=== PATIENT | female | born 1965 | race Caucasian/White ===

== ENCOUNTER 2021-09-26 23:01 | Inpatient (IN) ==
[2021-09-26] MEDS ORDERED: STAT IV Infusion **Titration per Protocol STA (23:19)
[2021-09-26] MEDS ORDERED: dilTIAZem HCl 5 MG/ML 5 ML VIAL IV STA (23:19)
[2021-09-26] MEDS ORDERED: dilTIAZem HCL 125 MG in DEXTROSE 5% 100 ML IV SCH (23:30)
[2021-09-26] MEDS ORDERED: SODIUM CHLORIDE 0.9% 1000ML 1,000 ML IV SCH (23:30)
--- NOTE | 2021-09-26 23:50 | XRay Report ---
XR chest 1V portable CLINICAL HISTORY: palpitations. Covid positive. COMPARISON STUDY: No previous studies for comparison. TECHNIQUE: 1 view of the chest FINDINGS: Single frontal view of the chest demonstrates the cardiomediastinal silhouette to be within normal li mits. The lungs are clear of alveolar opacities. There is no evidence for pleural effusion. There is no evidence for vascular congestion. There is no acute osseous pathology. IMPRESSION: 1. No acute cardiopulmonary disease. ACT 112: Negative or not required by law. Electronically signed by: Jeremy Booker M.D. 09/26/2021 11:49 PM
[2021-09-26 23:52] LABS: D Dimer 290 ug/L FEU (0-500); Prothrombin Time 10.3 Seconds (9.0-12.0)
--- NOTE | 2021-09-27 00:05 | Emergency Department Note ---
History of Present Illness General Chief complaint: Tachycardia Stated complaint: TACHYCARDIA Time Seen by Provider: 09/26/21 23:08 Source: patient Mode of arrival: ambulatory Limitations: no limitations History of Present Illness Provider complaint: palpitations Onset (ago): hour(s) This is a 56-year-old female presents emergency department with concern for palpitations. Patient states this evening palpitations began approximately half an hour to 45 minutes ago and have been persistent ever since. She states she does have a history of frequent PVCs. She states several weeks ago her smart watch detected "A. fib". She has never previously been diagnosed with A. fib. She states she was having similar palpitations at that time. She states many years ago she had a stress test, no prior echo, and she does not follow with cardiology routinely. She states her PVCs were previously thought to be related to anxiety. She states she does take medication for high blood pressure and d oes take a low-dose aspirin daily. She and her recently traveled to [place]. She denies fevers or recent illness, no history of thyroid problems. Denies leg swelling or calf tenderness. She states she is taking her medications as previously prescribed and feels she is staying well-hydrated. Pt seen during a time of high acuity and national emergency pandemic while wearing PPE. Home Medications Medication Instructions Recorded Confirmed Type amlodipine 5 mg tablet 5 mg PO QPM 09/27/21 09/27/21 History aspirin 81 mg tablet,delayed 81 mg PO QAM 09/27/21 09/27/21 History release cyanocobalamin (vitamin B-12) 500 500 mcg PO QAM 09/27/21 09/27/21 History mcg tablet (Vitamin B-12) gemfibrozil 600 mg tablet 600 mg PO BID 09/27/21 09/27/21 History hydrochlorothiazide 25 mg tablet 25 mg PO QAM 09/27/21 09/27/21 History losartan 100 mg tablet 100 mg PO QAM 09/27/21 09/27/21 History metformin 500 mg tablet,extended 1,000 mg PO QAM 09/27/21 09/27/21 History release 24 hr Allergies Allergy/AdvReac Type Severity Reaction Status Date / Time cefdinir AdvReac Severe Diarrhea Verified 09/27/21 00:46 codeine AdvReac Intermediate Gastrointestinal Verified 09/27/21 00:46 Upset turmeric AdvReac Intermediate afib Verified 09/27/21 00:46 Past Med/Surg History Social History Smoking Status: Never smoker Hx Alcohol Use: Yes Alcohol type: wine Hx Substance Use: No Preferred Language: Lebanese Communication Ability: Effective Director Medical Science Required: No Beliefs That Will Affect Care: None Current Living Situation: Spouse and Family Other Information That Helps Us Care for You: No Feels Safe at Home: Yes Safety Concerns: Feels Safe At This Time Assistive Devices: Glasses Review of Systems A total of 10 systems reviewed and were otherwise negative All systems reviewed & are unremarkable except as noted in HPI & below Physical Exam Vital Signs Vital Signs - 24 hr 09/26/21 23:03 09/26/21 23:19 09/26/21 23:34 Temperature 36.4 C L Temperature Source Temporal Artery Scan Pulse Rate 135 H 135 H 132 H Pulse Rate from SpO2 Sensor 137 H Pulse Rhythm Regular Pulse Strength Normal Respiratory Rate 18 17 16 Respiratory Effort / Characteristics Non-Labored Spontaneous Respiratory Depth Normal Respiratory Pattern Regular Blood Pressure 192/98 H 183/124 H Blood Pressure Mean 129 143 Blood Pressure Position Sitting Pulse Oximetry 98 99 Oxygen Delivery Method Room Air Sepsis Recent Fever Within 48 Hours No Sepsis New/Unexplained Change in Mental Status N/A Sepsis Action Taken by Nursing No Action Required 09/26/21 23:45 09/27/21 00:00 09/27/21 00:04 Temperature Temperature Source Pulse Rate 126 H 120 H 123 H Pulse Rate from SpO2 Sensor 121 H Pulse Rhythm Pulse Strength Respiratory Rate 16 18 18 Respiratory Effort / Characteristics Respiratory Depth Respiratory Pattern Blood Pressure 118/93 Blood Pressure Mean 101 Blood Pressure Position Pulse Oximetry 94 98 Oxygen Delivery Method Sepsis Recent Fever Within 48 Hours Sepsis New/Unexplained Change in Mental Status Sepsis Action Taken by Nursing 09/27/21 00:15 09/27/21 00:16 09/27/21 00:16 Temperature Temperature Source Pulse Rate 101 H 87 Pulse Rate from SpO2 Sensor 98 H 81 Pulse Rhythm Pulse Strength Respiratory Rate 17 21 Respiratory Effort / Characteristics Respiratory Depth Respiratory Pattern Blood Pressure 120/48 L 120/48 L Blood Pressure Mean 72 72 Blood Pressure Position Pulse Oximetry 94 94 Oxygen Delivery Method Sepsis Recent Fever Within 48 Hours Sepsis New/Unexplained Change in Mental Status Sepsis Action Taken by Nursing 09/27/21 00:30 09/27/21 00:31 09/27/21 00:45 Temperature Temperature Source Pulse Rate 95 H 91 H 92 H Pulse Rate from SpO2 Sensor 95 H 87 90 Pulse Rhythm Pulse Strength Respiratory Rate 16 16 16 Respiratory Effort / Characteristics Respiratory Depth Respiratory Pattern Blood Pressure 93/68 L 125/88 Blood Pressure Mean 76 100 Blood Pressure Position Pulse Oximetry 96 93 91 Oxygen Delivery Method Sepsis Recent Fever Within 48 Hours Sepsis New/Unexplained Change in Mental Status Sepsis Action Taken by Nursing 09/27/21 01:00 09/27/21 01:00 09/27/21 01:15 Temperature Temperature Source Pulse Rate 100 H 115 H Pulse Rate from SpO2 Sensor 111 H 109 H Pulse Rhythm Pulse Strength Respiratory Rate 16 18 Respiratory Effort / Characteristics Respiratory Depth Respiratory Pattern Blood Pressure 148/106 H 122/76 Blood Pressure Mean 120 91 Blood Pressure Position Pulse Oximetry 95 94 Oxygen Delivery Method Sepsis Recent Fever Within 48 Hours Sepsis New/Unexplained Change in Mental Status Sepsis Action Taken by Nursing 09/27/21 01:30 09/27/21 01:46 Temperature Temperature Source Pulse Rate 108 H 117 H Pulse Rate from SpO2 Sensor 122 H 102 H Pulse Rhythm Pulse Strength Respiratory Rate 14 18 Respiratory Effort / Characteristics Respiratory Depth Respiratory Pattern Blood Pressure 147/87 H 132/105 H Blood Pressure Mean 107 114 Blood Pressure Position Pulse Oximetry 95 93 Oxygen Delivery Method Sepsis Recent Fever Within 48 Hours Sepsis New/Unexplained Change in Mental Status Sepsis Action Taken by Nursing GENERAL: alert, well appearing, well nourished, no distress, non-toxic EYE EXAM: normal conjunctiva, PERRL and EOM's grossly intact OROPHARYNX: no exudate, no erythema, lips, buccal mucosa, and tongue normal and mucous membranes are moist NECK: supple, no nuchal rigidity, no adenopathy, non-tender LUNGS: Clear to auscultation. Normal chest wall mechanics, no w/r/r HEART: no murmurs, S1 normal and S2 normal ABDOMEN: abdomen soft, non-tender, normo-active bowel sounds, no masses, no rebound or guarding. BACK: Back is symmetrical on inspection and there is no deformity, no midline tenderness, no CVA tenderness. SKIN: no rashes and no bruising UPPER EXTREMITIES: upper extremities are grossly normal. FROM, nml pulses b/l. LOWER EXTREMITIES: No pitting edema. FROM, nml pulses b/l. NEURO EXAM: Normal sensorium, cranial nerves II-XII grossly intact, normal speech, no gross weakness of arms, no gross weakness of legs. Gross sensation intact. Course Course 0015: HR improved with cardizem. Administered Medications Diltiazem HCl 125 mg/ Dextrose 125 mls @ 5 mls/hr IV .Q24H CHICA; Protocol Stop: 10/26/21 23:29 Last Titration: 09/27/21 04:15 Dose: 0 mg/hr, 0 mls/hr Documented By: JUAN JOSÉ Co-signed By: ELENI Admin: 09/27/21 00:09 Dose: 5 mg/hr, 5 mls/hr Documented By: MT Co-signed By: VANESA Heparin Sodium/Dextrose (Heparin Sodium/Dextrose) 25,000 units in 500 mls @ 18 mls/hr IV .Q24H CHICA; Protocol Stop: 10/27/21 00:29 Last Admin: 09/27/21 02:10 Dose: 900 units/hr, 18 mls/hr Documented By: MT Co-signed By: IRINEO Lactated Ringer's (Lr) 1,000 mls @ 80 mls/hr IV .[id number] ONE Stop: 09/27/21 14:21 Last Admin: 09/27/21 02:57 Dose: 80 mls/hr Documented By: JUAN JOSÉ Discontinued Medications Diltiazem HCl (Diltiazem Hcl 5 Mg/Ml 5 Ml Vial) 20 mg IV NOW STA Stop: 09/26/21 23:20 Last Admin: 09/26/21 23:55 Dose: 20 mg Documented By: MT Co-signed By: MOISES Heparin Sodium/Dextrose (Heparin Iv Adult Wt-Based Low-Dose *No* Bolus Protocol) 1 each IV ONE ONE; Protocol Stop: 09/27/21 00:24 Last Admin: 09/27/21 04:41 Dose: Not Given Documented By: JUAN JOSÉ Sodium Chloride (Nss 1000ml) 1,000 mls @ 125 mls/hr IV .Q8H CHICA Stop: 10/26/21 23:29 Last Infusion: 09/27/21 02:31 Dose: 0 mls/hr Documented By: Admin: 09/27/21 00:00 Dose: 125 mls/hr Documented By: TONI Metoprolol Tartrate (Metoprolol Tartrate 25 Mg Tab) 25 mg PO NOW STA Stop: 09/27/21 01:06 Last Admin: 09/27/21 02:14 Dose: 25 mg Documented By: TONI Miscellaneous (Stat Iv Infusion Titration Per Protocol) 1 each N/A NOW STA Stop: 09/26/21 23:20 Last Admin: 09/27/21 04:41 Dose: 1 each Documented By: JUAN JOSÉ Potassium Chloride (Potassium Chloride Crtab 20 Meq Tabcr) 40 meq PO NOW STA Stop: 09/27/21 01:03 Last Admin: 09/27/21 02:14 Dose: 40 meq Documented By: TONI Critical Care Time Critical Care Time: Yes Total Critical Care Time: 39 Critical care of 39 min performed to assess and manage high likelihood of life- threatening dysrhythmia, involving labs and imaging performed with assessment to evaluate dysrhythmia diagnosis with frequent reassessment. This time includes bedside time, treatment discussions with patient/family/consultants, documentation time and excludes procedure time. Medical Decision Making Differential Diagnosis Differential diagnosis includes etiologies such as premature contractions, electrolyte abnormality, cardiac dysrhythmia, thyroid dysfunction, pulmonary embolism, infection, gastrointestinal, as well as others were entertained. Medical Records Attestation: I reviewed the patient's medical records. Home Medications Current Medication List: was personally reviewed by me Laboratory Data Attestation: I reviewed the patient's lab results. Result diagrams: 09/26/21 23:35 09/26/21 23:35 Lab Results 09/26/21 09/26/21 09/26/21 Range/Units 23:20 23:20 23:20 WBC Cancelled RBC Cancelled Hgb Cancelled Hct Cancelled MCV Cancelled MCH Cancelled MCHC Cancelled RDW Std Deviation Cancelled RDW Coeff of Estefany Cancelled Plt Count Cancelled MPV Cancelled Immature Gran % (Auto) Cancelled Neut % (Auto) Cancelled Lymph % (Auto) Cancelled [place] % (Auto) Cancelled Eos % (Auto) Cancelled Baso % (Auto) Cancelled Neut # (Auto) Cancelled Lymph # (Auto) Cancelled [place] # (Auto) Cancelled Eos # (Auto) Cancelled Baso # (Auto) Cancelled Immature Gran # (Auto) Cancelled Absolute Nucleated RBC Cancelled Nucleated RBC % (auto) Cancelled Neutrophils % (Manual) Cancelled Band Neutrophils % Cancelled Lymphocytes % (Manual) Cancelled Prolymphocyte % Cancelled Reactive Lymphs % (Man) Cancelled Monocytes % (Manual) Cancelled Eosinophils % (Manual) Cancelled Basophils % (Manual) Cancelled Metamyelocytes % (Man) Cancelled Myelocytes % (Man) Cancelled Promyelocytes % (Man) Cancelled Blast Cells % (Manual) Cancelled Plasma Cell % (Manual) Cancelled Other Cells % Cancelled Nucleated RBC % Cancelled Neutrophils # (Manual) Cancelled Band Neutrophils # Cancelled Total Absolute Neuts Cancelled Lymphocytes # (Manual) Cancelled Prolymphocyte # Cancelled Reactive Lymphs # Cancelled Total Abs Lymphocytes Cancelled Monocytes # (Manual) Cancelled Eosinophils # (Manual) Cancelled Basophils # (Manual) Cancelled Metamyelocytes # (Man) Cancelled Myelocytes # (Manual) Cancelled Promyelocytes # (Man) Cancelled Blast Cells # (Man) Cancelled Plasma Cell # (Manual) Cancelled Other Cells # Cancelled Nucleated RBCs # (Man) Cancelled Hypersegmented Neuts Cancelled Hyposegmented Neuts Cancelled Hypogranular Neuts Cancelled Large Granular Lymphs Cancelled # Lrg Granular Lymphs Cancelled Hairy Cells Cancelled Smudge Cells Cancelled Toxic Granulation Cancelled Toxic Vacuolation Cancelled Dohle Bodies Cancelled Kalie Rods Cancelled Platelet Estimate Cancelled Hypogranular Platelets Cancelled Clumped Platelets Cancelled Giant Platelets Cancelled Platelet Satelliting Cancelled RBC Morphology Cancelled Polychromasia Cancelled Hypochromasia Cancelled Poikilocytosis Cancelled Basophilic Stippling Cancelled Anisocytosis Cancelled Microcytosis Cancelled Macrocytosis Cancelled Spherocytes Cancelled Pappenheimer Bodies Cancelled Sickle Cells Cancelled Target Cells Cancelled Tear Drop Cells Cancelled Ovalocytes Cancelled Stomatocytes Cancelled [place] Bodies Cancelled Echinocytes Cancelled Acanthocytes (Spur) Cancelled Rouleaux Cancelled RBC Agglutinates Cancelled Schistocytes Cancelled Sezary Cell Cancelled PT 10.3 (9.0-12.0) Seconds INR 1.0 (0.9-1.1) APTT (21.0-31.0) Seconds PTT Ratio D-Dimer 290 (0-500) ug/L FEU Sodium (136-145) mmol/L Potassium (3.5-5.1) mmol/L Chloride (98-107) mmol/L Carbon Dioxide (21-32) mmol/L Anion Gap (3-11) BUN (6-23) mg/dl Creatinine (0.6-1.2) mg/dl Est Cr Clr Drug Dosing ml/min Est GFR ( Amer) ml/min Est GFR (Non-Af Amer) ml/min BUN/Creatinine Ratio (10-20) Glucose (70-99(Fasting)) mg/dl Calcium (8.5-10.1) mg/dl Magnesium (1.7-2.4) mg/dl Total Bilirubin (0.2-1.0) mg/dl AST (13-39) U/L ALT (7-52) U/L Alkaline Phosphatase (34-104) U/L Troponin I High Sens (0-14) pg/ml Total Protein (6.0-8.3) gm/dl Albumin (3.4-5.0) gm/dl Globulin (2.5-4.0) gm/dl Albumin/Globulin Ratio (0.9-2) Lipase (11-82) U/L TSH 1.541 (0.300-4.500) uIu/ml Lyme Disease IgG Ab (Negative) Lyme Disease IgM Ab (Negative) SARS-CoV-2, RNA, NAAT (NEGATIVE) Blood Parasites ID Cancelled 09/26/21 09/26/21 09/26/21 Range/Units 23:20 23:20 23:35 WBC RBC Hgb Hct MCV MCH MCHC RDW Std Deviation RDW Coeff of Estefany Plt Count MPV Immature Gran % (Auto) Neut % (Auto) Lymph % (Auto) [place] % (Auto) Eos % (Auto) Baso % (Auto) Neut # (Auto) Lymph # (Auto) [place] # (Auto) Eos # (Auto) Baso # (Auto) Immature Gran # (Auto) Absolute Nucleated RBC Nucleated RBC % (auto) Neutrophils % (Manual) Band Neutrophils % Lymphocytes % (Manual) Prolymphocyte % Reactive Lymphs % (Man) Monocytes % (Manual) Eosinophils % (Manual) Basophils % (Manual) Metamyelocytes % (Man) Myelocytes % (Man) Promyelocytes % (Man) Blast Cells % (Manual) Plasma Cell % (Manual) Other Cells % Nucleated RBC % Neutrophils # (Manual) Band Neutrophils # Total Absolute Neuts Lymphocytes # (Manual) Prolymphocyte # Reactive Lymphs # Total Abs Lymphocytes Monocytes # (Manual) Eosinophils # (Manual) Basophils # (Manual) Metamyelocytes # (Man) Myelocytes # (Manual) Promyelocytes # (Man) Blast Cells # (Man) Plasma Cell # (Manual) Other Cells # Nucleated RBCs # (Man) Hypersegmented Neuts Hyposegmented Neuts Hypogranular Neuts Large Granular Lymphs # Lrg Granular Lymphs Hairy Cells Smudge Cells Toxic Granulation Toxic Vacuolation Dohle Bodies Kalie Rods Platelet Estimate Hypogranular Platelets Clumped Platelets Giant Platelets Platelet Satelliting RBC Morphology Polychromasia Hypochromasia Poikilocytosis Basophilic Stippling Anisocytosis Microcytosis Macrocytosis Spherocytes Pappenheimer Bodies Sickle Cells Target Cells Tear Drop Cells Ovalocytes Stomatocytes [place] Bodies Echinocytes Acanthocytes (Spur) Rouleaux RBC Agglutinates Schistocytes Sezary Cell PT (9.0-12.0) Seconds INR (0.9-1.1) APTT 24.5 (21.0-31.0) Seconds PTT Ratio 0.9 D-Dimer (0-500) ug/L FEU Sodium 138 (136-145) mmol/L Potassium 3.8 (3.5-5.1) mmol/L Chloride 103 (98-107) mmol/L Carbon Dioxide 25 (21-32) mmol/L Anion Gap 10 (3-11) BUN 17 (6-23) mg/dl Creatinine 0.76 (0.6-1.2) mg/dl Est Cr Clr Drug Dosing 97.3 ml/min Est GFR ( Amer) 100.2 ml/min Est GFR (Non-Af Amer) 86.5 ml/min BUN/Creatinine Ratio 22.4 H (10-20) Glucose 123 H (70-99(Fasting)) mg/dl Calcium 10.2 H (8.5-10.1) mg/dl Magnesium 2.1 (1.7-2.4) mg/dl Total Bilirubin 0.6 (0.2-1.0) mg/dl AST 50 H (13-39) U/L ALT 52 (7-52) U/L Alkaline Phosphatase 159 H (34-104) U/L Troponin I High Sens 5.5 (0-14) pg/ml Total Protein 8.0 (6.0-8.3) gm/dl Albumin 4.6 (3.4-5.0) gm/dl Globulin 3.4 (2.5-4.0) gm/dl Albumin/Globulin Ratio 1.4 (0.9-2) Lipase 46 (11-82) U/L TSH (0.300-4.500) uIu/ml Lyme Disease IgG Ab Negative (Negative) Lyme Disease IgM Ab Negative (Negative) SARS-CoV-2, RNA, NAAT (NEGATIVE) Blood Parasites ID 09/26/21 09/27/21 Range/Units 23:35 00:50 WBC 8.77 RBC 5.18 Hgb 14.2 Hct 43.4 MCV 83.8 MCH 27.4 MCHC 32.7 RDW Std Deviation 37.4 RDW Coeff of Estefany 12.3 Plt Count 341 MPV 9.8 Immature Gran % (Auto) 0.2 Neut % (Auto) 47.4 Lymph % (Auto) 41.4 [place] % (Auto) 8.4 Eos % (Auto) 1.7 Baso % (Auto) 0.9 Neut # (Auto) 4.15 Lymph # (Auto) 3.63 H [place] # (Auto) 0.74 Eos # (Auto) 0.15 Baso # (Auto) 0.08 Immature Gran # (Auto) 0.02 Absolute Nucleated RBC Nucleated RBC % (auto) Neutrophils % (Manual) Band Neutrophils % Lymphocytes % (Manual) Prolymphocyte % Reactive Lymphs % (Man) Monocytes % (Manual) Eosinophils % (Manual) Basophils % (Manual) Metamyelocytes % (Man) Myelocytes % (Man) Promyelocytes % (Man) Blast Cells % (Manual) Plasma Cell % (Manual) Other Cells % Nucleated RBC % Neutrophils # (Manual) Band Neutrophils # Total Absolute Neuts Lymphocytes # (Manual) Prolymphocyte # Reactive Lymphs # Total Abs Lymphocytes Monocytes # (Manual) Eosinophils # (Manual) Basophils # (Manual) Metamyelocytes # (Man) Myelocytes # (Manual) Promyelocytes # (Man) Blast Cells # (Man) Plasma Cell # (Manual) Other Cells # Nucleated RBCs # (Man) Hypersegmented Neuts Hyposegmented Neuts Hypogranular Neuts Large Granular Lymphs # Lrg Granular Lymphs Hairy Cells Smudge Cells Toxic Granulation Toxic Vacuolation Dohle Bodies Kalie Rods Platelet Estimate Hypogranular Platelets Clumped Platelets Giant Platelets Platelet Satelliting RBC Morphology Polychromasia Hypochromasia Poikilocytosis Basophilic Stippling Anisocytosis Microcytosis Macrocytosis Spherocytes Pappenheimer Bodies Sickle Cells Target Cells Tear Drop Cells Ovalocytes Stomatocytes [place] Bodies Echinocytes Acanthocytes (Spur) Rouleaux RBC Agglutinates Schistocytes Sezary Cell PT (9.0-12.0) Seconds INR (0.9-1.1) APTT (21.0-31.0) Seconds PTT Ratio D-Dimer (0-500) ug/L FEU Sodium (136-145) mmol/L Potassium (3.5-5.1) mmol/L Chloride (98-107) mmol/L Carbon Dioxide (21-32) mmol/L Anion Gap (3-11) BUN (6-23) mg/dl Creatinine (0.6-1.2) mg/dl Est Cr Clr Drug Dosing ml/min Est GFR ( Amer) ml/min Est GFR (Non-Af Amer) ml/min BUN/Creatinine Ratio (10-20) Glucose (70-99(Fasting)) mg/dl Calcium (8.5-10.1) mg/dl Magnesium (1.7-2.4) mg/dl Total Bilirubin (0.2-1.0) mg/dl AST (13-39) U/L ALT (7-52) U/L Alkaline Phosphatase (34-104) U/L Troponin I High Sens (0-14) pg/ml Total Protein (6.0-8.3) gm/dl Albumin (3.4-5.0) gm/dl Globulin (2.5-4.0) gm/dl Albumin/Globulin Ratio (0.9-2) Lipase (11-82) U/L TSH (0.300-4.500) uIu/ml Lyme Disease IgG Ab (Negative) Lyme Disease IgM Ab (Negative) SARS-CoV-2, RNA, NAAT NEGATIVE (NEGATIVE) Blood Parasites ID Imaging Data Radiologist's Impression: Chest X-Ray 09/26/21 23:19 XR chest 1V portable CLINICAL HISTORY: palpitations. Covid positive. COMPARISON STUDY: No previous studies for comparison. TECHNIQUE: 1 view of the chest FINDINGS: Single frontal view of the chest demonstrates the cardiomediastinal silhouette to be within normal limits. The lungs are clear of alveolar opacities. There is no evidence for pleural effusion. There is no evidence for vascular congestion. There is no acute osseous pathology. IMPRESSION: 1. No acute cardiopulmonary disease. ACT 112: Negative or not required by law. Electronically signed by: Jeremy Booker M.D. 09/26/2021 11:49 PM ECG Data Attestation: I personally reviewed and interpreted this ECG as follows: Indication: + palpitations Rate (beats per minute): 128 Rhythm: + atrial fibrillation ECG Intervals/blocks: + Normal QRS and + Normal QT ECG [place]: + Normal ECG ST segments: + Nonspecific ST abnormalities MDM Narrative An order was placed for continuous cardiac monitoring. The monitor shows a rate of _127_ with _a.fib__ rhythm. This is a 56-year-old female who presents due to concern for palpitations. Patient found to be in rapid A. fib. Patient does admit to prior longstanding history of frequent PVCs thought to be secondary due to her anxiety. She states she began having more frequent and longer episodes several weeks ago and her smart watch told her she had A. fib. She has not yet seen her PCP or had any evaluation for such. She does not routinely follow with cardiology. She does have a history of high blood pressure. Labs drawn and sent, chest x-ray performed, patient started on Cardizem bolus and drip which did significantly improve her rate and lessened her overall symptoms of palpitations. She denied any coming chest pain or shortness of breath. No recent illness, she did recently travel and so a D-dimer was also checked, this was negative. Troponin negative, electrolytes and TSH reassuring. Lyme test negative. Heparin started additionally. Due to concern for A. fib over the last several weeks, case discussed with hospitalist for additional evaluation and management. [id number] VASc 2 score of 3. Patient has never had a prior echo. Patient hemodynamically stable in the emergency room. Impression & Plan Palpitations, Atrial fibrillation with rapid ventricular response Discharge Plan Visit Data Chief Complaint: Tachycardia Stated Complaint: TACHYCARDIA ED Provider: Ariana Durán Discharge Problem: Palpitations, Atrial fibrillation with rapid ventricular response Patient Disposition: Admitted As Inpatient Discharge Instructions Interventions: ED Discharge Assessment Last Done: 09/27/21 02:28
[2021-09-27 00:17] LABS: Albumin Globulin Ratio 1.4 (0.9-2); Albumin Level 4.6 gm/dl (3.4-5.0); BUN Creatinine Ratio 22.4 (10-20); Bilirubin,Total 0.6 mg/dl (0.2-1.0); Calcium 10.2 mg/dl (8.5-10.1); Creatinine Clr Calc Pharmacy 97.3 ml/min; Est GFR (African American) 100.2 ml/min; Est GFR (Non-African American) 86.5 ml/min; Globulin 3.4 gm/dl (2.5-4.0); Magnesium 2.1 mg/dl (1.7-2.4); Potassium 3.8 mmol/L (3.5-5.1)
[2021-09-27 00:20] LABS: Basophils # (auto) 0.08 K/uL (0-0.2); Basophils % (auto) 0.9 %; Eosinophils # (auto) 0.15 K/uL (0-0.50); Eosinophils % (auto) 1.7 %; Hematocrit (blood only) 43.4 % (34.1-44.9); Hemoglobin 14.2 g/dl (12.0-16.0); Immature Granulocytes # (auto) 0.02 K/uL (0.00-0.02); Immature Granulocytes % (auto) 0.2 %; Lymphocytes # (auto) 3.63 K/uL (1.2-3.4); Lymphocytes % (auto) 41.4 %; Mean Corpuscular Hemoglobin 27.4 pg (25.0-34.0); Mean Corpuscular Hgb Conc 32.7 g/dL (32.0-36.0); Mean Corpuscular Volume 83.8 fL (80.0-100.0); Mean Platelet Volume 9.8 fL (9.4-12.3); Monocytes # (auto) 0.74 K/uL (0.24-0.82); Monocytes % (auto) 8.4 %; Neutrophils # (auto) 4.15 K/uL (1.4-6.5); Neutrophils % (auto) 47.4 %; Platelet Count 341 K/uL (130-400); RDW Coefficient of Variation 12.3 % (11.5-14.5); RDW Standard Deviation 37.4 fL (36.4-46.3); Red Blood Count 5.18 M/uL (3.93-5.22); White Blood Count 8.77 K/ul (4.8-10.8)
[2021-09-27 00:23] LABS: Troponin I High Sensitivity 5.5 pg/ml (0-14)
[2021-09-27] MEDS ORDERED: Heparin IV Adult Wt-Based Low-Dose *NO* Bolus Protocol IV ONE (00:23)
[2021-09-27] MEDS ORDERED: HEPARIN SODIUM/DEXTROSE 25,000 UNITS/500 ML BAG IV SCH (00:30)
[2021-09-27 00:36] LABS: Lyme Ab IgG w/WB Rflx Negative (Negative); Lyme Ab IgM w/WB Rflx Negative (Negative)
[2021-09-27] MEDS ORDERED: POTASSIUM CHLORIDE CRTAB 20 MEQ TABCR PO STA (01:02)
[2021-09-27] MEDS ORDERED: METOPROLOL TARTRATE 25 MG TAB PO STA (01:05)
[2021-09-27 01:18] LABS: Partial Thromboplastin Ratio 0.9; Partial Thromboplastin Time 24.5 Seconds (21.0-31.0)
[2021-09-27] MEDS ORDERED: LACTATED RINGER'S 1,000 ML IV ONE (01:52)
--- NOTE | 2021-09-27 01:54 | History & Physical Report ---
Date of Service September 27, 2021 Assessment & Plan (1) Atrial fibrillation with rapid ventricular response: Plan: Initial A. fib episode from 3 weeks ago during her vacation hx PVCs Possibly from uncontrolled BP, stress hyperlipidemia on fibrate Rx prediabetes PCU Initiate beta-fady for BP and rate control Wean off Cardizem drip Continue IV heparin for thromboembolic prophylaxis Anxiolytic as needed TTE, Cardiology consult Re: A. fib Check hemoglobin A1c DVT prophylaxis. Heparin Full code Text document was generated using tagga voice recognition software. It may contain grammatical or spelling errors. Kindly contact undersigned for clarification of any documentation item in question. History of Present Illness Chief Complaint: Palpitations Primary Care Provider: INGRID FISHER PA-C from [place], [place] History obtained from patient and records. Medical history significant for hypertension, PVCs, hyperlipidemia, urolithiasis , prediabetes. Patient is a resident of [place], [place] who is in town to drop off her son who will be starting his postgrad studies. Patient has had PVCs for about 10 years. PVCs perceived by patient as " heart turning sensation". Occurring at a weekly frequency. Usually precipitated by stress, exertion. Resolving with relaxation. Patient sure to avoid caffeine. BP controlled at home as per patient Borderline sleep apnea on outpatient sleep study. Family doctor had previously recommended beta-fady to control symptoms. Patient hesitant to take Rx given her multiple BP medications. 3 weeks ago during a trip to [place], patient's watch alerted her to A. fib. Respiratory symptoms from COVID-19 illness during vacation with spontaneous resolution. Sick contacts during vacation. Patient completed COVID-19 vaccination. Patient returned to [facility] last week. Last night at the local hotel while getting ready for bed, patient noted more intense palpitations. Patient admits to some anxiety and stress with her second son leaving home for postgrad school. SBP 190s upon arrival at the ER, No chest pain, no SOB, no unusual leg swelling. Patient consulted ER for evaluation. Noted to be in rapid A. fib. IV Cardizem boluses followed by infusion and IV heparin initiated at the ER. Medical History as above Surgical History : Urologic procedure Family History : Kidney stones, A. fib Personal/Social history : Non-smoker, no EtOH intake, medical insurance assistant Allergies Allergy/AdvReac Type Severity Reaction Status Date / Time cefdinir AdvReac Severe Diarrhea Verified 09/27/21 00:46 codeine AdvReac Intermediate Gastrointestinal Verified 09/27/21 00:46 Upset turmeric AdvReac Intermediate afib Verified 09/27/21 00:46 Home Medications Medication Instructions Recorded Confirmed Type amlodipine 5 mg tablet 5 mg PO QPM 09/27/21 09/27/21 History aspirin 81 mg tablet,delayed 81 mg PO QAM 09/27/21 09/27/21 History release cyanocobalamin (vitamin B-12) 500 500 mcg PO QAM 09/27/21 09/27/21 History mcg tablet (Vitamin B-12) gemfibrozil 600 mg tablet 600 mg PO BID 09/27/21 09/27/21 History hydrochlorothiazide 25 mg tablet 25 mg PO QAM 09/27/21 09/27/21 History losartan 100 mg tablet 100 mg PO QAM 09/27/21 09/27/21 History metformin 500 mg tablet,extended 1,000 mg PO QAM 09/27/21 09/27/21 History release 24 hr Past Med/Surg History Social History Smoking Status: Never smoker Preferred Language: Kiswahili Feels Safe at Home: Yes Review of Systems Review of Systems: As per HPI, all other systems reviewed and negative Physical Exam Physical Exam: GENERAL: Comfortable, pleasant, slightly anxious, obese, no respiratory distress SKIN: Normal color, warm HEENT: [place] palpebral conjunctivae, no ptosis, dry buccal mucosa NECK : Supple, short neck, no tenderness CHEST : CTA, no tenderness HEART : Tachycardic, irregular, no obvious murmurs ABDOMEN: Some distention, nontender EXTREMITIES : No LE swelling/tenderness, no other conspicuous deformities noted NEUROLOGIC : Coherent, no facial asymmetry, no other gross focality Results & Data Results & Data ([facility]) Vital Signs (Past 12 Hours) Vital Signs Temp Pulse Resp BP Pulse Ox O2 Del Method 09/27/21 01:15 115 H 18 122/76 94 09/27/21 01:00 148/106 H 09/27/21 01:00 100 H 16 95 09/27/21 00:45 92 H 16 125/88 91 09/27/21 00:31 91 H 16 93/68 L 93 09/27/21 00:30 95 H 16 96 08/14/22 00:16 87 21 120/48 L 94 09/27/21 00:16 120/48 L 09/27/21 00:15 101 H 17 94 09/27/21 00:04 123 H 18 118/93 98 09/27/21 00:00 120 H 18 94 09/26/21 23:45 126 H 16 09/26/21 23:34 132 H 16 09/26/21 23:19 135 H 17 183/124 H 99 09/26/21 23:03 36.4 C L 135 H 18 192/98 H 98 Room Air Laboratory Results Laboratory Results WBC 8.77 K/ul (4.8-10.8) 09/26/21 23:35 RBC 5.18 M/uL (3.93-5.22) 09/26/21 23:35 Hgb 14.2 g/dl (12.0-16.0) 09/26/21 23:35 Hct 43.4 % (34.1-44.9) 09/26/21 23:35 MCV 83.8 fL (80.0-100.0) 09/26/21 23:35 MCH 27.4 pg (25.0-34.0) 09/26/21 23:35 MCHC 32.7 g/dL (32.0-36.0) 09/26/21 23:35 RDW Std Deviation 37.4 fL (36.4-46.3) 09/26/21 23:35 RDW Coeff of Estefany 12.3 % (11.5-14.5) 09/26/21 23:35 Plt Count 341 K/uL (130-400) 09/26/21 23:35 MPV 9.8 fL (9.4-12.3) 09/26/21 23:35 Immature Gran % (Auto) 0.2 % 09/26/21 23:35 Neut % (Auto) 47.4 % 09/26/21 23:35 Lymph % (Auto) 41.4 % 09/26/21 23:35 [place] % (Auto) 8.4 % 09/26/21 23:35 Eos % (Auto) 1.7 % 09/26/21 23:35 Baso % (Auto) 0.9 % 09/26/21 23:35 Neut # (Auto) 4.15 K/uL (1.4-6.5) 09/26/21 23:35 Lymph # (Auto) 3.63 K/uL (1.2-3.4) H 09/26/21 23:35 [place] # (Auto) 0.74 K/uL (0.24-0.82) 09/26/21 23:35 Eos # (Auto) 0.15 K/uL (0-0.50) 09/26/21 23:35 Baso # (Auto) 0.08 K/uL (0-0.2) 09/26/21 23:35 Immature Gran # (Auto) 0.02 K/uL (0.00-0.02) 09/26/21 23:35 Absolute Nucleated RBC Cancelled 09/26/21 23:20 Nucleated RBC % (auto) Cancelled 09/26/21 23:20 Neutrophils % (Manual) Cancelled 09/26/21 23:20 Band Neutrophils % Cancelled 09/26/21 23:20 Lymphocytes % (Manual) Cancelled 09/26/21 23:20 Prolymphocyte % Cancelled 09/26/21 23:20 Reactive Lymphs % (Man) Cancelled 09/26/21 23:20 Monocytes % (Manual) Cancelled 09/26/21 23:20 Eosinophils % (Manual) Cancelled 09/26/21 23:20 Basophils % (Manual) Cancelled 09/26/21 23:20 Metamyelocytes % (Man) Cancelled 09/26/21 23:20 Myelocytes % (Man) Cancelled 09/26/21 23:20 Promyelocytes % (Man) Cancelled 09/26/21 23:20 Blast Cells % (Manual) Cancelled 09/26/21 23:20 Plasma Cell % (Manual) Cancelled 09/26/21 23:20 Other Cells % Cancelled 09/26/21 23:20 Nucleated RBC % Cancelled 09/26/21 23:20 Neutrophils # (Manual) Cancelled 09/26/21 23:20 Band Neutrophils # Cancelled 09/26/21 23:20 Total Absolute Neuts Cancelled 09/26/21 23:20 Lymphocytes # (Manual) Cancelled 09/26/21 23:20 Prolymphocyte # Cancelled 09/26/21 23:20 Reactive Lymphs # Cancelled 09/26/21 23:20 Total Abs Lymphocytes Cancelled 09/26/21 23:20 Monocytes # (Manual) Cancelled 09/26/21 23:20 Eosinophils # (Manual) Cancelled 09/26/21 23:20 Basophils # (Manual) Cancelled 09/26/21 23:20 Metamyelocytes # (Man) Cancelled 09/26/21 23:20 Myelocytes # (Manual) Cancelled 09/26/21 23:20 Promyelocytes # (Man) Cancelled 09/26/21 23:20 Blast Cells # (Man) Cancelled 09/26/21 23:20 Plasma Cell # (Manual) Cancelled 09/26/21 23:20 Other Cells # Cancelled 09/26/21 23:20 Nucleated RBCs # (Man) Cancelled 09/26/21 23:20 Hypersegmented Neuts Cancelled 09/26/21 23:20 Hyposegmented Neuts Cancelled 09/26/21 23:20 Hypogranular Neuts Cancelled 09/26/21 23:20 Large Granular Lymphs Cancelled 09/26/21 23:20 # Lrg Granular Lymphs Cancelled 09/26/21 23:20 Hairy Cells Cancelled 09/26/21 23:20 Smudge Cells Cancelled 09/26/21 23:20 Toxic Granulation Cancelled 09/26/21 23:20 Toxic Vacuolation Cancelled 09/26/21 23:20 Dohle Bodies Cancelled 09/26/21 23:20 Kalie Rods Cancelled 09/26/21 23:20 Platelet Estimate Cancelled 09/26/21 23:20 Hypogranular Platelets Cancelled 09/26/21 23:20 Clumped Platelets Cancelled 09/26/21 23:20 Giant Platelets Cancelled 09/26/21 23:20 Platelet Satelliting Cancelled 09/26/21 23:20 RBC Morphology Cancelled 09/26/21 23:20 Polychromasia Cancelled 09/26/21 23:20 Hypochromasia Cancelled 09/26/21 23:20 Poikilocytosis Cancelled 09/26/21 23:20 Basophilic Stippling Cancelled 09/26/21 23:20 Anisocytosis Cancelled 09/26/21 23:20 Microcytosis Cancelled 09/26/21 23:20 Macrocytosis Cancelled 08/13/22 23:20 Spherocytes Cancelled 09/26/21 23:20 Pappenheimer Bodies Cancelled 09/26/21 23:20 Sickle Cells Cancelled 09/26/21 23:20 Target Cells Cancelled 09/26/21 23:20 Tear Drop Cells Cancelled 09/26/21 23:20 Ovalocytes Cancelled 09/26/21 23:20 Stomatocytes Cancelled 09/26/21 23:20 Deluna-Sanford Bodies Cancelled 09/26/21 23:20 Echinocytes Cancelled 09/26/21 23:20 Acanthocytes (Spur) Cancelled 09/26/21 23:20 Rouleaux Cancelled 09/26/21 23:20 RBC Agglutinates Cancelled 09/26/21 23:20 Schistocytes Cancelled 09/26/21 23:20 Sezary Cell Cancelled 09/26/21 23:20 PT 10.3 Seconds (9.0-12.0) 09/26/21 23:20 INR 1.0 (0.9-1.1) 09/26/21 23:20 APTT 24.5 Seconds (21.0-31.0) 09/26/21 23:20 PTT Ratio 0.9 09/26/21 23:20 D-Dimer 290 ug/L FEU (0-500) 09/26/21 23:20 Sodium 138 mmol/L (136-145) 09/26/21 23:35 Potassium 3.8 mmol/L (3.5-5.1) 09/26/21 23:35 Chloride 103 mmol/L (98-107) 09/26/21 23:35 Carbon Dioxide 25 mmol/L (21-32) 09/26/21 23:35 Anion Gap 10 (3-11) 09/26/21 23:35 BUN 17 mg/dl (6-23) 09/26/21 23:35 Creatinine 0.76 mg/dl (0.6-1.2) 09/26/21 23:35 Est Cr Clr Drug Dosing 97.3 ml/min 09/26/21 23:35 Est GFR ( Amer) 100.2 ml/min 09/26/21 23:35 Est GFR (Non-Af Amer) 86.5 ml/min 09/26/21 23:35 BUN/Creatinine Ratio 22.4 (10-20) H 09/26/21 23:35 Glucose 123 mg/dl (70-99(Fasting)) H 09/26/21 23:35 Calcium 10.2 mg/dl (8.5-10.1) H 09/26/21 23:35 Magnesium 2.1 mg/dl (1.7-2.4) 09/26/21 23:35 Total Bilirubin 0.6 mg/dl (0.2-1.0) 09/26/21 23:35 AST 50 U/L (13-39) H 09/26/21 23:35 ALT 52 U/L (7-52) 09/26/21 23:35 Alkaline Phosphatase 159 U/L (34-104) H 09/26/21 23:35 Troponin I High Sens 5.5 pg/ml (0-14) 09/26/21 23:35 Total Protein 8.0 gm/dl (6.0-8.3) 09/26/21 23:35 Albumin 4.6 gm/dl (3.4-5.0) 09/26/21 23:35 Globulin 3.4 gm/dl (2.5-4.0) 09/26/21 23:35 Albumin/Globulin Ratio 1.4 (0.9-2) 09/26/21 23:35 Lipase 46 U/L (11-82) 09/26/21 23:35 TSH 1.541 uIu/ml (0.300-4.500) 09/26/21 23:20 Lyme Disease IgG Ab Negative (Negative) 09/26/21 23:20 Lyme Disease IgM Ab Negative (Negative) 09/26/21 23:20 SARS-CoV-2, RNA, NAAT NEGATIVE (NEGATIVE) 09/27/21 00:50 Blood Parasites ID Cancelled 09/26/21 23:20 Impressions Chest X-Ray 09/26/21 23:19 XR chest 1V portable CLINICAL HISTORY: palpitations. Covid positive. COMPARISON STUDY: No previous studies for comparison. TECHNIQUE: 1 view of the chest FINDINGS: Single frontal view of the chest demonstrates the cardiomediastinal silhouette to be within normal limits. The lungs are clear of alveolar opacities. There is no evidence for pleural effusion. There is no evidence for vascular congestion. There is no acute osseous pathology. IMPRESSION: 1. No acute cardiopulmonary disease. ACT 112: Negative or not required by law. Electronically signed by: Jeremy Booker M.D. 09/26/2021 11:49 PM Diagnostic Findings EKG as per my interpretation :Rate 130, A. fib, normal axis, no ischemia Code Status & VTE Plan VTE Prophylaxis Plan VTE Prophylaxis will be ordered: Yes
[2021-09-27] MEDS ORDERED: PROMETHAZINE HCL 12.5 MG in SODIUM CHLORIDE 0.9% 50 ML IV PRN (02:47)
[2021-09-27] MEDS ORDERED: traMADol HCL 50 MG TABLET PO PRN (02:47)
[2021-09-27] MEDS ORDERED: ACETAMINOPHEN 325 MG TAB PO PRN (02:47)
[2021-09-27] MEDS ORDERED: LORazepam 0.5 MG TAB PO PRN (02:47)
[2021-09-27 08:57] LABS: Basophils # (auto) 0.07 K/uL (0-0.2); Eosinophils % (auto) 1.5 %; Hemoglobin 12.3 g/dl (12.0-16.0); Immature Granulocytes # (auto) 0.02 K/uL (0.00-0.02); Immature Granulocytes % (auto) 0.3 %; Lymphocytes % (auto) 34.3 %; Mean Corpuscular Hemoglobin 27.3 pg (25.0-34.0); Mean Corpuscular Hgb Conc 32.4 g/dL (32.0-36.0); Mean Corpuscular Volume 84.4 fL (80.0-100.0); Mean Platelet Volume 9.8 fL (9.4-12.3); Monocytes # (auto) 0.44 K/uL (0.24-0.82); Monocytes % (auto) 6.6 %; Neutrophils # (auto) 3.77 K/uL (1.4-6.5); Neutrophils % (auto) 56.3 %; Platelet Count 295 K/uL (130-400); RDW Coefficient of Variation 12.3 % (11.5-14.5); RDW Standard Deviation 37.3 fL (36.4-46.3)
[2021-09-27] MEDS ORDERED: CYANOCOBALAMIN (B-12) 500 MCG TABLET PO SCH (09:00)
[2021-09-27] MEDS ORDERED: METOPROLOL TARTRATE 25 MG TAB PO SCH (09:00)
[2021-09-27] MEDS ORDERED: LOSARTAN POTASSIUM 50 MG TAB PO SCH (09:00)
[2021-09-27] MEDS ORDERED: gemfibroziL 600 MG TAB PO SCH (09:00)
[2021-09-27 09:10] LABS: Partial Thromboplastin Ratio 1.2; Partial Thromboplastin Time 33.3 Seconds (21.0-31.0)
[2021-09-27 09:21] LABS: Calcium 9.1 mg/dl (8.5-10.1); Creatinine Clr Calc Pharmacy 122.5 ml/min; Est GFR (African American) 116.4 ml/min; Est GFR (Non-African American) 100.5 ml/min; Potassium 3.8 mmol/L (3.5-5.1)
[2021-09-27] MEDS ORDERED: HEPARIN SOD (PORCINE) 1000 UNIT/ML IV ONE (10:00)
--- NOTE | 2021-09-27 10:34 | Hospitalist Progress Note ---
Date of Service September 27, 2021 Assessment & Plan (1) Atrial fibrillation with rapid ventricular response: Plan: New onset. TSH normal, CXR clear, no signs or symptoms of underlying infection, D-dimer 290 (ruling out DVT/PE), Echo this am reveals normal EF 60-65%, no valve disease. CHADs-Vasc score is 3 (Female, HTN, DM) indicating appropriateness for anticoagulation at least in the short term. She prefers apixaban to coumadin so will run through insurance for cost. Defer to cardiology for final plans/recs. (2) Prediabetes: Plan: A1C pending. She is from [facility] with prior records unavailable. Takes metformin. Inpatient glucose at goal. Cont insulin coverage while admitted. (3) HTN (hypertension): Plan: Chronic, at goal. HCTZ was held overnight. Will likely restart on discharge. Cont losartan and amlodipine per home regimen. (4) DVT prophylaxis: Plan: heparin drip Full COde Dispo-to home today or tomorrow pending cardiology clearance Ofelia Torrez DO [place] Hospitalist Admission and Anticipated Discharge Date Admission Date: September 27, 2021 Subjective 56 yo F presented with new onset atrial fibrillation with RVR. She reports a recent international trip to [place] and upon arrival states that she felt her heart racing and her fit bit showed her there was an arrhythmia present. This happened two additional times until yesterday when she was admitted. She reports some hematuria overnight and states this happens when she is on blood thinners (like aspirin or motrin) because of a strong history of kidney stones. She is asymptomatic and denies and UTI symptoms at this time. Denies chest pain or SOB. TSH is WNL She converted to normal sinus rhythm overnight. She remains on a heparin drip. Review of Systems Review of Systems: All systems were reviewed and negative except as indicated above. Physical Exam Physical Exam: CONSTITUTIONAL: obese, vitals as above, generally well- appearing, NAD EYES: normal conjunctivae, no scleral icterus, ENT: external ear and nose normal, MMM NECK: trachea midline, RESPIRATORY: clear to auscultation bilaterally, no crackles, rales or wheezes, normal respiratory effort CARDIOVASCULAR: regular rate and rhythm, S1 and 2 heard without murmurs, gallops or rubs, no JVD, no peripheral edema CHEST: inspection of chest was normal GASTROINTESTINAL: soft, nontender, ND, no guarding MUSCULOSKELETAL: strength 5/5 throughout, head is normocephalic and atraumatic, neck supple, normal palpation of chest wall without tenderness SKIN: warm and dry, NEUROLOGIC: CN 2-12 grossly intact, no sensory deficit, normal cognition, normal speech, no tremor PSYCHIATRIC: alert cooperative and oriented to person, place and time. Euthymic mood, makes good eye contact, language grossly intact, recent and remote memory grossly intact. Results & Data Results & Data ([facility]) Vital Signs (Past 12 Hours) Vital Signs Temp Pulse Pulse Resp BP BP BP 09/27/21 08:03 37.5 C 62 18 123/73 09/27/21 08:02 52 L 09/27/21 02:55 69 09/27/21 02:55 09/27/21 02:55 36.8 C 65 18 126/83 09/27/21 03:00 36.8 C 65 20 126/83 09/27/21 02:15 73 16 135/72 09/27/21 02:00 92 H 16 124/85 09/27/21 01:46 117 H 18 132/105 H 09/27/21 01:30 108 H 14 147/87 H 09/27/21 01:15 115 H 18 122/76 09/27/21 01:00 148/106 H 09/27/21 01:00 100 H 16 09/27/21 00:45 92 H 16 125/88 09/27/21 00:31 91 H 16 93/68 L 09/27/21 00:30 95 H 16 09/27/21 00:16 87 21 120/48 L 09/27/21 00:16 120/48 L 09/27/21 00:15 101 H 17 09/27/21 00:04 123 H 18 118/93 09/27/21 00:00 120 H 18 09/26/21 23:45 126 H 16 09/26/21 23:34 132 H 16 09/26/21 23:19 135 H 17 183/124 H 09/26/21 23:03 36.4 C L 135 H 18 192/98 H Pulse Ox O2 Del Method 09/27/21 08:03 96 Room Air 09/27/21 08:02 09/27/21 02:55 09/27/21 02:55 Room Air 09/27/21 02:55 97 Room Air 09/27/21 03:00 97 09/27/21 02:15 96 09/27/21 02:00 93 09/27/21 01:46 93 09/27/21 01:30 95 09/27/21 01:15 94 09/27/21 01:00 09/27/21 01:00 95 09/27/21 00:45 91 09/27/21 00:31 93 09/27/21 00:30 96 09/27/21 00:16 94 09/27/21 00:16 09/27/21 00:15 94 09/27/21 00:04 98 09/27/21 00:00 94 09/26/21 23:45 09/26/21 23:34 09/26/21 23:19 99 09/26/21 23:03 98 Room Air Laboratory Results Short CBC 09/26/21 09/26/21 09/27/21 Range/Units 23:20 23:35 08:09 WBC Cancelled 8.77 6.70 Hgb Cancelled 14.2 12.3 Hct Cancelled 43.4 38.0 Plt Count Cancelled 341 295 BMP 09/26/21 09/27/21 23:35 08:09 Sodium 138 140 Potassium 3.8 3.8 Chloride 103 107 Carbon Dioxide 25 25 BUN 17 12 Creatinine 0.76 0.60 Glucose 123 H 148 H Calcium 10.2 H 9.1 Liver Function 09/26/21 Range/Units 23:35 Total Bilirubin 0.6 (0.2-1.0) mg/dl AST 50 H (13-39) U/L ALT 52 (7-52) U/L Alkaline Phosphatase 159 H (34-104) U/L Albumin 4.6 (3.4-5.0) gm/dl Diagnostic Findings Chest X-Ray 09/26/21 23:19 XR chest 1V portable CLINICAL HISTORY: palpitations. Covid positive. COMPARISON STUDY: No previous studies for comparison. TECHNIQUE: 1 view of the chest FINDINGS: Single frontal view of the chest demonstrates the cardiomediastinal silhouette to be within normal limits. The lungs are clear of alveolar opacities. There is no evidence for pleural effusion. There is no evidence for vascular congestion. There is no acute osseous pathology. IMPRESSION: 1. No acute cardiopulmonary disease. ACT 112: Negative or not required by law. Electronically signed by: Jeremy Booker M.D. 09/26/2021 11:49 PM Medications Administered Current Inpatient Medications Acetaminophen (Acetaminophen 325 Mg Tab) 650 mg PO Q4H PRN PRN Reason: Pain or Fever Stop: 10/27/21 02:46 Amlodipine Besylate (Amlodipine Besylate 5 Mg Tab) 5 mg PO QPM [facility] Stop: 10/27/21 20:59 Cyanocobalamin (Cyanocobalamin (B-12) 500 Mcg Tablet) 500 mcg PO QAM [facility] Stop: 10/27/21 08:59 Last Admin: 09/27/21 09:27 Dose: 500 mcg Gemfibrozil (Gemfibrozil 600 Mg Tab) 600 mg PO BID [facility] Stop: 10/27/21 08:59 Last Admin: 09/27/21 09:27 Dose: 600 mg Heparin Sodium/Dextrose (Heparin Sodium/Dextrose) 25,000 units in 500 mls @ 21 mls/hr IV .[id number] [facility]; Protocol Stop: 10/27/21 00:29 Last Titration: 09/27/21 09:45 Dose: 1,050 units/hr, 21 mls/hr Lactated Ringer's (Lr) 1,000 mls @ 80 mls/hr IV .[id number] ONE Stop: 09/27/21 14:21 Last Admin: 09/27/21 02:57 Dose: 80 mls/hr Promethazine HCl 12.5 mg/ (Sodium Chloride) 50.5 mls @ 202 mls/hr IV Q6H PRN PRN Reason: Nausea And Vomiting Stop: 10/27/21 02:46 Lorazepam (Lorazepam 0.5 Mg Tab) 0.5 mg PO TID PRN PRN Reason: Anxiety Stop: 10/27/21 02:46 Losartan Potassium (Losartan Potassium 50 Mg Tab) 100 mg PO QAM [facility] Stop: 10/27/21 08:59 Last Admin: 09/27/21 09:27 Dose: 100 mg Metoprolol Tartrate (Metoprolol Tartrate 25 Mg Tab) 25 mg PO BID [facility] Stop: 10/27/21 08:59 Last Admin: 09/27/21 09:27 Dose: 25 mg Tramadol HCl (Tramadol Hcl 50 Mg Tablet) 25 - 50 mg PO Q4H PRN PRN Reason: Pain Stop: 10/27/21 02:46
--- NOTE | 2021-09-27 12:14 | Cardiology Consultation ---
Date of Consultation September 27, 2021 Assessment & Plan (1) Paroxysmal atrial fibrillation: (2) HTN (hypertension): (3) Prediabetes: Plan I long discussion with the patient regarding the natural history, pathophysiology, and stroke risk associated with paroxysmal atrial fibrillation. [id number] score is 2 secondary to hypertension and female sex. Risk versus benefit of anticoagulation discussed. Continue metoprolol and intravenous heparin. Transition patient to oral Eliquis at discharge. Metoprolol tartrate may be transition to succinate formulation to improve compliance. Follow-up with primary care as scheduled on Tuesday. Consider outpatient stress testing for further risk stratification given risk factors and new onset atrial fibrillation. I provided patient with contact information for my office if she has any further concerns/complaints prior to leaving the area. No further inpatient cardiac testing necessary at this time. History of Present Illness Reason for Consultation: Paroxysmal atrial fibrillation. Requesting Physician: Dr. Torrez Attending Physician: Ofelia Torrez, DO History of Present Illness 56-year-old female present to the emergency department palpitations. Fitbit alerting her to atrial fibrillation. Converted to sinus rhythm overnight. Has experienced intermittent palpitations over the past few weeks. 2 episodes occurred recently while vacationing in [place]. Currently resting comfortably. Consumed her a.m. and midday meal. Tolerating metoprolol and IV anticoagulation. Reports resting heart rate typically in the 60s. Denies any lightheadedness, dizziness, syncope, or near syncope. No perso nal history of coronary disease, congestive heart failure, or rheumatic fever as a child. Review of bedside 2D transthoracic echocardiogram demonstrates preserved LV systolic function, mild left atrial lodgment, no significant valvular pathology. Family history of paroxysmal atrial fibrillation noted. Patient resides in [place]. Planning to return home on Tuesday. Has a follow- up appointment scheduled with her primary care physician on Tuesday. Allergies Allergy/AdvReac Type Severity Reaction Status Date / Time cefdinir AdvReac Severe Diarrhea Verified 09/27/21 00:46 codeine AdvReac Intermediate Gastrointestinal Verified 09/27/21 00:46 Upset turmeric AdvReac Intermediate afib Verified 09/27/21 00:46 Home Medications Medication Instructions Recorded Confirmed Type amlodipine 5 mg tablet 5 mg PO QPM 09/27/21 09/27/21 History apixaban 5 mg tablet 5 mg PO BID #60 tabs 09/27/21 Rx aspirin 81 mg tablet,delayed 81 mg PO QAM 09/27/21 09/27/21 History release cyanocobalamin (vitamin B-12) 500 500 mcg PO QAM 09/27/21 09/27/21 History mcg tablet (Vitamin B-12) gemfibrozil 600 mg tablet 600 mg PO BID 09/27/21 09/27/21 History hydrochlorothiazide 25 mg tablet 25 mg PO QAM 09/27/21 09/27/21 History losartan 100 mg tablet 100 mg PO QAM 09/27/21 09/27/21 History metformin 500 mg tablet,extended 1,000 mg PO QAM 09/27/21 09/27/21 History release 24 hr Patient History Social History Smoking Status: Never smoker Hx Alcohol Use: Yes Alcohol type: wine Hx Substance Use: No Preferred Language: Swedish Communication Ability: Effective Counter Waitress/Waiter Required: No Beliefs That Will Affect Care: None Current Living Situation: Spouse and Family Other Information That Helps Us Care for You: No Feels Safe at Home: Yes Safety Concerns: Feels Safe At This Time Assistive Devices: Glasses Review of Systems Review of Systems: All systems reviewed & are unremarkable except as noted in Subjective Physical Exam Constitutional: well nourished and + obese Respiratory: normal respiratory effort Auscultation: lungs clear to auscultation bilaterally; no crackles, no rales, no rhonchi and no wheezes Cardiovascular: Rate/Rhythm: regular rate and regular rhythm Heart Sounds: normal S1 and normal S2; no murmur Vessels: radial pulses present; no JVD and no carotid bruit Extremities: no edema Gastrointestinal (Abdomen): Inspection/Auscultation: abdomen normal to inspection and normal bowel sounds; abdomen not distended Percussion/Palpation: abdomen soft; abdomen nontender, no guarding and abdomen not rigid Neurologic: CN's II-XI intact bilaterally and moves all extremities Psychiatric: A+Ox3, euthymic affect Results & Data ([facility]) Vital Signs (Past 12 Hours) Vital Signs Temp Pulse Pulse Resp BP BP BP 09/27/21 08:03 37.5 C 62 18 123/73 09/27/21 08:02 52 L 09/27/21 02:55 69 09/27/21 02:55 09/27/21 02:55 36.8 C 65 18 126/83 09/27/21 03:00 36.8 C 65 20 126/83 09/27/21 02:15 73 16 135/72 09/27/21 02:00 92 H 16 124/85 09/27/21 01:46 117 H 18 132/105 H 09/27/21 01:30 108 H 14 147/87 H 09/27/21 01:15 115 H 18 122/76 09/27/21 01:00 148/106 H 09/27/21 01:00 100 H 16 09/27/21 00:45 92 H 16 125/88 09/27/21 00:31 91 H 16 93/68 L 09/27/21 00:30 95 H 16 09/27/21 00:16 87 21 120/48 L 09/27/21 00:16 120/48 L 09/27/21 00:15 101 H 17 Pulse Ox O2 Del Method 09/27/21 08:03 96 Room Air 09/27/21 08:02 09/27/21 02:55 09/27/21 02:55 Room Air 09/27/21 02:55 97 Room Air 09/27/21 03:00 97 09/27/21 02:15 96 09/27/21 02:00 93 09/27/21 01:46 93 09/27/21 01:30 95 09/27/21 01:15 94 09/27/21 01:00 09/27/21 01:00 95 09/27/21 00:45 91 09/27/21 00:31 93 09/27/21 00:30 96 09/27/21 00:16 94 09/27/21 00:16 09/27/21 00:15 94
--- NOTE | 2021-09-27 13:39 | Electrocardiogram Report ---
Test Reason : Blood Pressure : / mmHG Vent. Rate : 128 BPM Atrial Rate : 131 BPM P-R Int : 000 ms QRS Dur : 070 ms QT Int : 266 ms P-R-T Axes : 000 000 070 degrees QTc Int : 388 ms Possible Atrial fibrillation with rapid ventricular response Nonspecific ST abnormality Abnormal ECG No previous ECGs available Confirmed by Finn Lux ([id number]) on 09/27/2021 1:38:41 PM Referred By: REFERRED SELF Confirmed By:Finn Lux
--- NOTE | 2021-09-27 13:42 | Electrocardiogram Report ---
Test Reason : Blood Pressure : / mmHG Vent. Rate : 056 BPM Atrial Rate : 056 BPM P-R Int : 186 ms QRS Dur : 074 ms QT Int : 458 ms P-R-T Axes : 008 004 056 degrees QTc Int : 441 ms Sinus bradycardia Otherwise normal ECG When compared with ECG of 26-SEP-2021 23:11, (unconfirmed) No significant change Confirmed by Finn Lux ([id number]) on 09/27/2021 1:41:56 PM Referred By: REFERRED SELF Confirmed By:Finn Lux
--- NOTE | 2021-09-27 13:42 | Electrocardiogram Report ---
Test Reason : Blood Pressure : / mmHG Vent. Rate : 061 BPM Atrial Rate : 061 BPM P-R Int : 184 ms QRS Dur : 068 ms QT Int : 452 ms P-R-T Axes : -01 003 056 degrees QTc Int : 455 ms Normal sinus rhythm Normal ECG When compared with ECG of 26-SEP-2021 23:11, (unconfirmed) Sinus rhythm has replaced Atrial fibrillation Vent. rate has decreased BY [address] no longer depressed in Inferior leads ST no longer depressed in Anterior leads Confirmed by Finn Lux ([id number]) on 09/27/2021 1:41:35 PM Referred By: REFERRED SELF Confirmed By:Finn Lux
--- NOTE | 2021-09-27 14:58 | Discharge Summary ---
Date of Service September 27, 2021 Admission HPI Per Admitting Provider History obtained from patient and records. Medical history significant for hypertension, PVCs, hyperlipidemia, urolithiasis , prediabetes. Patient is a resident of [place], [place] who is in town to drop off her son who will be starting his postgrad studies. Patient has had PVCs for about 10 years. PVCs perceived by patient as " heart turning sensation". Occurring at a weekly frequency. Usually precipitated by stress, exertion. Resolving with relaxation. Patient sure to avoid caffeine. BP controlled at home as per patient Borderline sleep apnea on outpatient sleep study. Family doctor had previously recommended beta-fady to control symptoms. Patient hesitant to take Rx given her multiple BP medications. 3 weeks ago during a trip to [place], patient's watch alerted her to A. fib. Respiratory symptoms from COVID-19 illness during vacation with spontaneous resolution. Sick contacts during vacation. Patient completed COVID-19 vaccination. Patient returned to [facility] last week. Last night at the local hotel while getting ready for bed, patient noted more intense palpitations. Patient admits to some anxiety and stress with her second son leaving home for postgrad school. SBP 190s upon arrival at the ER, No chest pain, no SOB, no unusual leg swelling. Patient consulted ER for evaluation. Noted to be in rapid A. fib. IV Cardizem boluses followed by infusion and IV heparin initiated at the ER. Medical History as above Surgical History : Urologic procedure Family History : Kidney stones, A. fib Personal/Social history : Non-smoker, no EtOH intake, medical insurance adviser Principal Diagnosis Paroxysmal atrial fibrillation Discharge Exam CONSTITUTIONAL: obese, vitals as above, generally well-appearing, NAD EYES: normal conjunctivae, no scleral icterus, ENT: external ear and nose normal, MMM NECK: trachea midline, RESPIRATORY: clear to auscultation bilaterally, no crackles, rales or wheezes, normal respiratory effort CARDIOVASCULAR: regular rate and rhythm, S1 and 2 heard without murmurs, gallops or rubs, no JVD, no peripheral edema CHEST: inspection of chest was normal GASTROINTESTINAL: soft, nontender, ND, no guarding MUSCULOSKELETAL: strength 5/5 throughout, head is normocephalic and atraumatic, neck supple, normal palpation of chest wall without tenderness SKIN: warm and dry, NEUROLOGIC: CN 2-12 grossly intact, no sensory deficit, normal cognition, normal speech, no tremor PSYCHIATRIC: alert cooperative and oriented to person, place and time. Euthymic mood, makes good eye contact, language grossly intact, recent and remote memory grossly intact. Discharge Data Allergies Allergy/AdvReac Type Severity Reaction Status Date / Time cefdinir AdvReac Severe Diarrhea Verified 09/27/21 00:46 codeine AdvReac Intermediate Gastrointestinal Verified 09/27/21 00:46 Upset turmeric AdvReac Intermediate afib Verified 09/27/21 00:46 Consultations 09/27/21 00:50 ED Decision to Admit Stat 09/27/21 02:47 Consult Cardiology Routine Hospital Course (1) Atrial fibrillation with rapid ventricular response: (2) Prediabetes: (3) HTN (hypertension): Plan 56-year-old female admitted with new onset atrial fibrillation with rapid ventricular response. Her Fitbit alerted her to an arrhythmia and elevated heart rate. She experienced intermittent palpitations over the past few weeks. She was started on metoprolol and IV heparin upon arrival to the ER. She was admitted to medicine and converted to sinus rhythm spontaneously. She has no issues with thyroid or cardiac disease and no history of congestive heart failure or rheumatic fever as a child. She resides in [place] and plans to return home earlier this week. Cardiology was consulted and discussed the natural history, pathophysiology and stroke with associated with paroxysmal atrial fibrillation. Her [id number] score of 2 is secondary to hypertension and female sex. She was found to have preserved LV function mild atrial enlargement and no significant valvular pathology on 2D transthoracic echocardiogram. She was continued on apixaban therapy at time of discharge as well as Toprol-XL to encourage compliance with metoprolol. At time of discharge she was hemodynamically stable and oxygenating well on room air. She was mentating and ambulating at baseline. She was advised to follow-up with her primary care physician within 1 week of discharge. Total Time Total Time Spent Total Time Spent (In Minutes): 60 Discharge Plan Discharge Items Patient Disposition: Home - Self-Care Reason For Visit: RAPID AF Discharge Diagnosis: Paroxysmal atrial fibrillation Condition on Discharge: Good Activity: Resume your previous activity Non-emergency contact: Primary Care Provider Call non-emergency contact if: you have any medication questions and your symptoms worsen Follow-up/Referrals: INGRID FISHER [Other] Diet: Carb Consistent or DM2 Addtl Attending Provider Instructions: Please take all medications as instructed on discharge list below. You were diagnosed with atrial fibrillation. As a result you will be placed on a blood thinner called apixaban to reduce your risk of stroke. This medication should be taken twice daily and will increase your risk of bleeding and bruising. Please start this medication within two hours of leaving the hospital. Please avoid additional blood thinners such as Motrin, Ibuprofen, Alev, Naproxen, etc, while taking this medication. You will also be continued on a medication called metoprolol which will help with PVCs and decrease your heart rate. Please follow-up with your primary care physician in one week to ensure these new medications are working for you and you are feeling well. Outpatient stress testing should be considered for further risk stratification given your increased risk of heart disease and new onset atrial fibrillation. This may be ordered by your primary care physician on followup. It was a pleasure taking care of you! Please call if you have any questions or problems. You can reach a [facility] hospitalist on duty at [facility] 24 hours a day by calling [phone]. Take care of yourself. Ofeila Torrez, DO [facility] Hospitalist Pending Studies at Discharge: No Stand-Alone Forms: [facility] Medications and DC Order Prescriptions: New apixaban 5 mg tablet 5 mg PO BID Qty: 60 0RF metoprolol succinate [Toprol XL] 25 mg tablet extended release 24 hr 25 mg PO DAILY Qty: 30 0RF Continued amlodipine 5 mg tablet 5 mg PO QPM gemfibrozil 600 mg tablet 600 mg PO BID hydrochlorothiazide 25 mg tablet 25 mg PO QAM losartan 100 mg tablet 100 mg PO QAM metformin 500 mg tablet extended release 24 hr 1,000 mg PO QAM cyanocobalamin (vitamin B-12) [Vitamin B-12] 500 mcg Tablet 500 mcg PO QAM Discontinued aspirin [Aspirin Low-Strength] 81 mg Tablet,Delayed Release (Dr/Ec) 81 mg PO QAM Discharge Orders: Discharge Order (Routine); Ordered 09/27/21 Ordered By: Ofelia Torrez Admission Data Admit Date/Time: 09/27/21 01:49 Attending Provider: Ofelia Torrez Admit Provider: Oconer,Sloan N. Primary Care Provider: INGRID FISHER Other Providers: Sloan Marvin ; Clifton Yost ; Marin Shukla ; Dimitris Hunt ; Shiva Coleman ; Huy Sims ; Edwin Alonso ; Vivian Casas ; Denia Marrero ; Rosetta Clay ; Hesham Baldwin Other Interventions: Discharge Summary Assessment (RN) Last Done: 09/27/21 14:42
[2021-09-27] MEDS ORDERED: amLODIPine BESYLATE 5 MG TAB PO SCH (21:00)
[2021-09-28 06:46] LABS: Estimated Average Glucose 114 mg/dl; Hemoglobin A1C 5.6 % (4.5-5.6)
== END 2021-09-27 16:13 | disposition home or self-care (01) | DRG 310 ==
LOC: ED 23:01 → 2S 09-27 01:49
DX: Z88.1 Allergy status to other antibiotic agents; E66.9 Obesity, unspecified; I48.0 Paroxysmal atrial fibrillation; Z79.84 Long term (current) use of oral hypoglycemic drugs; Z82.49 Family history of ischemic heart disease and other diseases of the circulatory system; E78.5 Hyperlipidemia, unspecified; I49.3 Ventricular premature depolarization; I10 Essential (primary) hypertension; Z87.442 Personal history of urinary calculi; R73.03 Prediabetes; Z79.82 Long term (current) use of aspirin; Z88.5 Allergy status to narcotic agent; Z68.35 Body mass index [BMI] 35.0-35.9, adult; Z86.16 Personal history of COVID-19